=== PATIENT | male | born 1975 | race African-American/Black ===

== ENCOUNTER → 2020-05-26 | Outpatient (CLI) | payer OTHER ==
[~2020-05-26] VITALS: Ht 180.3 cm; Wt 108.9 kg
[~2020-05-26] MED LIST: ACCU-CHEK1 EAC1 MC; ATROVENT-HFA12.9 GM INH; AUTOJECT 21 EACH SQ; CYCLOBENZAPRINE10 MG PO; IBUPROFEN800 MG PO; INSULIN SYRING1 EA11 MC; LANTUS INS100 UTS/M1 SC; NOVOLIN R100 UNIT/2 SQ; PREDNISONE 50 M50 MG PO; PREDNISONE20 MG PO; PROVENTIL HFA6.7 GM INH; ROBITUSSIN DM UD5 ML PO; TESSALON PERLE100 MG PO
== END ==
LOC: OPSV 14:00
DX: A63.8 Other specified predominantly sexually transmitted diseases (principal)
CPT/HCPCS: 96372; J1580

== ENCOUNTER 2022-01-06 21:03 | Emergency (ER) | payer OTHER ==
[2022-01-06 22:10] LABS: HEMOGLOBIN 15.5 gm/dl (14.0-17.5); RED BLOOD COUNT 4.68 M/UL (4.20-5.50); WHITE BLOOD COUNT 10.5 K/UL (4.5-11.0)
[2022-01-06 22:39] LABS: BUN/CREATININE RATIO 18 (0-10)
[2022-01-07 02:46] LABS: BUN/CREATININE RATIO 18 (0-10)
[2022-01-07] MEDS ORDERED: JANUVIA50 MG PO (03:59)
== END 2022-01-07 04:51 | disposition home or self-care (01) ==
LOC: ER1 21:03
PROVIDERS: Physician Assistant; Student in an Organized Health Care Education/Training Program
DX: E11.65 Type 2 diabetes mellitus with hyperglycemia (principal); Z88.0 Allergy status to penicillin; Z20.822 Contact with and (suspected) exposure to COVID-19
CPT/HCPCS: 36600; 71045; 80048; 80053; 81001; 82009; 82800; 82962; 83690; 83735; 84439; 84443; 85025; 87086; 96361; 96374; 96376; 99285; U0002

== ENCOUNTER 2022-01-10 17:53 | Emergency (ER) | payer OTHER ==
[~2022-01-10 17:53] MED LIST changes: +JANUVIA50 MG PO
[2022-01-10 20:27] LABS: HEMOGLOBIN 16.6 gm/dl (14.0-17.5); RED BLOOD COUNT 4.94 M/UL (4.20-5.50); WHITE BLOOD COUNT 8.7 K/UL (4.5-11.0)
[2022-01-10 21:03] LABS: BUN/CREATININE RATIO 19 (0-10)
== END 2022-01-10 23:58 | disposition home or self-care (01) ==
LOC: ER1 17:53
PROVIDERS: Student in an Organized Health Care Education/Training Program
DX: E11.65 Type 2 diabetes mellitus with hyperglycemia (principal); Z88.0 Allergy status to penicillin
CPT/HCPCS: 80053; 82009; 82550; 82553; 82962; 84484; 85025; 96374; 96376; 99284